=== PATIENT | female | born 1990 | race Caucasian/White ===

== ENCOUNTER 2020-10-30 08:09 | Emergency (ER) | payer BC ==
[2020-10-30 08:18] VITALS: BP 88/54; PULSE 65; RESP 18; TEMP 97.9
[2020-10-30] MEDS ORDERED: SODIUM CHLORIDE 0.9% 1,000 ML IV STA (08:24)
[2020-10-30] MEDS ORDERED: FAMOTIDINE 20 MG/2 ML VIAL IV STA (08:25)
[2020-10-30] MEDS ORDERED: KETOROLAC 15 MG/ML 1 ML VIAL IVP STA (08:25)
--- NOTE | 2020-10-30 08:29 | ED ---
General Adult HPI - General Chief complaint: Abdominal Pain Stated complaint: Abd Pain Time Seen by Provider: 10/30/20 08:10 Source: patient, EMS, RN notes reviewed Mode of arrival: EMS Limitations: no limitations - History of Present Illness Initial comments: Patient is a pleasant 30-year-old female presenting to the emergency Department with complaints of abdominal discomfort. Onset of symptoms was a couple of years ago. Patient states she gets these symptoms approximately every 3 weeks and correlates with her menses. Patient is currently on her menses. Patient states symptoms started and 2019 when she had a large cyst removed from her fallopian tube. Patient states symptoms started today at 6 AM. Patient woke and was sweaty and nauseated, similar to previous symptoms. Patient has had multiple previous urgency Department visits. Patient was admitted one time recently with concerns for gallbladder with plan of having gallbladder removed however there was not availability and patient went home. Patient has also seen [facility] and primary care physician for this. Patient has had multiple previous studies including pelvic exams, ultrasounds and CTs, several of each. Patient states symptoms have improved following Tylenol and Zofran by EMS. Discomfort is mostly right upper abdomen. - Related Data Allergies Allergy/AdvReac Type Severity Reaction Status Date / Time metoclopramide [From Reglan] AdvReac Confusion Verified 10/30/20 08:20 Review of Systems ROS Statement: Those systems with pertinent positive or pertinent negative responses have been documented in the HPI. ROS Other: All systems not noted in ROS Statement are negative. Constitutional: Denies: fever Eyes: Denies: eye pain ENT: Denies: ear pain Respiratory: Denies: cough Cardiovascular: Denies: chest pain Endocrine: Denies: fatigue Gastrointestinal: Reports: as per HPI, abdominal pain, nausea Genitourinary: Reports: as per HPI. 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 Smoking Status: Current every day smoker Past Alcohol Use History: None Reported Past Drug Use History: Marijuana General Exam Limitations: no limitations General appearance: alert, in no apparent distress Head exam: Present: normocephalic Eye exam: Present: normal appearance Neck exam: Present: normal inspection Respiratory exam: Present: normal lung sounds bilaterally Cardiovascular Exam: Present: regular rate, normal rhythm Expanded Peripheral pulses: 2+: Posterior Tibialis (R), Posterior Tibialis (L) GI/Abdominal exam: Present: soft, tenderness (Mild tenderness between the right upper quadrant and epigastrium. There is minimal diffuse tenderness ), normal bowel sounds. Absent: distended, guarding, rebound, rigid, pulsatile mass Extremities exam: Present: normal inspection Back exam: Present: normal inspection Neurological exam: Present: alert Psychiatric exam: Present: normal affect, normal mood Skin exam: Present: normal color Course Vital Signs 10/30/20 08:11 Temperature 97.9 F Pulse Rate 65 Respiratory 18 Rate Blood Pressure 88/54 O2 Sat by Pulse 99 Oximetry Medical Decision Making - Medical Decision Making Patient reevaluated and is requesting discharge home. Patient states she is feeling much better. Patient updated on results and need for follow-up. Patient adds she was recently diagnosed with hepatitis C and is undergoing evaluation for treatment of that. - Lab Data Result diagrams: 10/30/20 08:28 10/30/20 08:28 Lab Results 10/30/20 10/30/20 10/30/20 Range/Units 08:28 08:28 08:28 WBC 3.8 (3.8-10.6) k/uL RBC 3.88 (3.80-5.40) m/uL Hgb 11.9 (11.4-16.0) gm/dL Hct 34.3 (34.0-46.0) % MCV 88.4 (80.0-100.0) fL MCH 30.6 (25.0-35.0) pg MCHC 34.7 (31.0-37.0) g/dL RDW 13.0 (11.5-15.5) % Plt Count 98 L (150-450) k/uL MPV 8.3 Neutrophils % 65 % Lymphocytes % 24 % Monocytes % 7 % Eosinophils % 2 % Basophils % 1 % Neutrophils # 2.5 (1.3-7.7) k/uL Lymphocytes # 0.9 L (1.0-4.8) k/uL Monocytes # 0.3 (0-1.0) k/uL Eosinophils # 0.1 (0-0.7) k/uL Basophils # 0.0 (0-0.2) k/uL Manual Slide Review Performed RBC Morphology Normal PT (9.0-12.0) sec INR (<1.2) APTT (22.0-30.0) sec Sodium 140 (137-145) mmol/L Potassium 3.8 (3.5-5.1) mmol/L Chloride 106 (98-107) mmol/L Carbon Dioxide 32 H (22-30) mmol/L Anion Gap 2 mmol/L BUN 15 (7-17) mg/dL Creatinine 0.45 L (0.52-1.04) mg/dL Est GFR (CKD-EPI)AfAm >90 (>60 ml/min/1.73 sqM) Est GFR (CKD-EPI)NonAf >90 (>60 ml/min/1.73 sqM) Glucose 110 H (74-99) mg/dL Calcium 8.3 L (8.4-10.2) mg/dL Total Bilirubin 0.2 (0.2-1.3) mg/dL AST 85 H (14-36) U/L ALT 141 H (4-34) U/L Alkaline Phosphatase 51 (38-126) U/L Total Protein 5.9 L (6.3-8.2) g/dL Albumin 3.3 L (3.5-5.0) g/dL Amylase 81 (30-110) U/L Lipase 147 (23-300) U/L HCG, Quant <2.4 mIU/mL Urine Color Yellow Urine Appearance Clear (Clear) Urine pH 6.5 (5.0-8.0) Ur Specific [place] 1.018 (1.001-1.035) Urine Protein Trace H (Negative) Urine Glucose (UA) Negative (Negative) Urine Ketones Negative (Negative) Urine Blood Large H (Negative) Urine Nitrite Negative (Negative) Urine Bilirubin Negative (Negative) Urine Urobilinogen 2.0 (<2.0) mg/dL Ur Leukocyte Esterase Negative (Negative) Urine RBC >182 H (0-5) /hpf Urine WBC 3 (0-5) /hpf Ur Squamous Epith Cells 2 (0-4) /hpf Urine Bacteria Rare H (None) /hpf Urine Mucus Rare H (None) /hpf 10/30/ Range/Units 08:28 WBC (3.8-10.6) k/uL RBC (3.80-5.40) m/uL Hgb (11.4-16.0) gm/dL Hct (34.0-46.0) % MCV (80.0-100.0) fL MCH (25.0-35.0) pg MCHC (31.0-37.0) g/dL RDW (11.5-15.5) % Plt Count (150-450) k/uL MPV Neutrophils % % Lymphocytes % % Monocytes % % Eosinophils % % Basophils % % Neutrophils # (1.3-7.7) k/uL Lymphocytes # (1.0-4.8) k/uL Monocytes # (0-1.0) k/uL Eosinophils # (0-0.7) k/uL Basophils # (0-0.2) k/uL Manual Slide Review RBC Morphology PT 11.1 (9.0-12.0) sec INR 1.0 (<1.2) APTT 24.1 (22.0-30.0) sec Sodium (137-145) mmol/L Potassium (3.5-5.1) mmol/L Chloride (98-107) mmol/L Carbon Dioxide (22-30) mmol/L Anion Gap mmol/L BUN (7-17) mg/dL Creatinine (0.52-1.04) mg/dL Est GFR (CKD-EPI)AfAm (>60 ml/min/1.73 sqM) Est GFR (CKD-EPI)NonAf (>60 ml/min/1.73 sqM) Glucose (74-99) mg/dL Calcium (8.4-10.2) mg/dL Total Bilirubin (0.2-1.3) mg/dL AST (14-36) U/L ALT (4-34) U/L Alkaline Phosphatase (38-126) U/L Total Protein (6.3-8.2) g/dL Albumin (3.5-5.0) g/dL Amylase (30-110) U/L Lipase (23-300) U/L HCG, Quant mIU/mL Urine Color Urine Appearance (Clear) Urine pH (5.0-8.0) Ur Specific [place] (1.001-1.035) Urine Protein (Negative) Urine Glucose (UA) (Negative) Urine Ketones (Negative) Urine Blood (Negative) Urine Nitrite (Negative) Urine Bilirubin (Negative) Urine Urobilinogen (<2.0) mg/dL Ur Leukocyte Esterase (Negative) Urine RBC (0-5) /hpf Urine WBC (0-5) /hpf Ur Squamous Epith Cells (0-4) /hpf Urine Bacteria (None) /hpf Urine Mucus (None) /hpf - Radiology Data Radiology results: report reviewed (Transvaginal ultrasound shows cystic lesion right ovary. Fluid in the cul-de-sac and left adnexal. Left ovary obscured by bowel content. Gallbladder ultrasound shows extrarenal pelvis versus mild pyelonephritis right knee.), image reviewed (Abdominal x-ray reveals nonobstructive pattern) Disposition Clinical Impression: Abdominal pain Disposition: HOME SELF-CARE Condition: Stable Instructions (If sedation given, give patient instructions): Abdominal Pain (ED) Additional Instructions: Please follow-up with your primary care physician as well as other doctors in the beginning of the week. Return for increased pain, vomiting, fever, worsening or change in symptoms or other concerns. Is patient prescribed a controlled substance at d/c from ED?: No Referrals: Nonstaff,Physician [Primary Care Provider] - 1-2 days Time of Disposition: 11:32
[2020-10-30 08:37] LABS: Basophils % (A) 1 %; Eosinophils # (A) 0.1 k/uL (0-0.7); Eosinophils % (A) 2 %; HCT 34.3 % (34.0-46.0); HGB 11.9 gm/dL (11.4-16.0); Lymphocytes # (A) 0.9 k/uL (1.0-4.8); Lymphocytes % (A) 24 %; MCH 30.6 pg (25.0-35.0); MCHC 34.7 g/dL (31.0-37.0); MCV 88.4 fL (80.0-100.0); Mean Platelet Volume 8.3; Monocytes # (A) 0.3 k/uL (0-1.0); Monocytes % (A) 7 %; Neutrophils # (A) 2.5 k/uL (1.3-7.7); Neutrophils % (A) 65 %; RBC 3.88 m/uL (3.80-5.40); WBC 3.8 k/uL (3.8-10.6)
[2020-10-30 08:47] LABS: Appearance,Urine Clear (Clear); Bacteria,Urine Rare /hpf; Bilirubin,Urine Negative (Negative); Blood,Urine Large (Negative); Color,Urine Yellow; Glucose,Urine (UA) Negative (Negative); Ketones,Urine Negative (Negative); Leukocyte Esterase,Urine Negative (Negative); Mucus,Urine Rare /hpf; Nitrite,Urine Negative (Negative); PH, Urine 6.5 (5.0-8.0); Protein,Urine Trace (Negative); RBC,Urine >182 /hpf (0-5); Specific Gravity,Urine 1.018 (1.001-1.035); Squamous Epithelial Cell,Urine 2 /hpf (0-4); WBC,Urine 3 /hpf (0-5)
[2020-10-30 08:48] LABS: Partial Thromboplastin Time 24.1 sec (22.0-30.0); Prothrombin Time 11.1 sec (9.0-12.0)
[2020-10-30 08:49] LABS: ALT 141 U/L (4-34); AST 85 U/L (14-36); African American GFR (CKD) >90 (>60 ml/min/1.73 sqM); Albumin 3.3 g/dL (3.5-5.0); Alkaline Phosphatase 51 U/L (38-126); Amylase 81 U/L (30-110); Anion Gap 2 mmol/L; Blood Urea Nitrogen 15 mg/dL (7-17); Calcium 8.3 mg/dL (8.4-10.2); Carbon Dioxide 32 mmol/L (22-30); Chloride 106 mmol/L (98-107); Glucose 110 mg/dL (74-99); Lipase 147 U/L (23-300); Non-African American GFR(CKD) >90 (>60 ml/min/1.73 sqM); Potassium 3.8 mmol/L (3.5-5.1); Sodium 140 mmol/L (137-145); Total Bilirubin 0.2 mg/dL (0.2-1.3); Total Protein 5.9 g/dL (6.3-8.2)
[2020-10-30 09:05] LABS: HCG,Quantitative Serum <2.4 mIU/mL
[2020-10-30 09:18] LABS: Platelet Count 98 k/uL (150-450)
--- NOTE | 2020-10-30 10:01 | US ---
EXAMINATION TYPE: US gallbladder DATE OF EXAM: 10/30/2020 COMPARISON: NONE CLINICAL HISTORY: pain. Pain EXAM MEASUREMENTS: Liver Length: 17.9 cm Gallbladder Wall: 0.1 cm CBD: 0.4 cm Right Kidney: 13.4 x 5.8 x 5.1 cm Pancreas: Main pancreatic duct = 3.1 mm Liver: wnl Gallbladder: wnl Evidence for sonographic Vargas's sign: neg CBD: wnl Right Kidney: Appears enlarged in size. Median anechoic lesion at hilum= 4.1 x 1.3 cm, possible dil ated renal pelvis IMPRESSION: Extrarenal pelvis versus mild hydronephrosis right kidney. Parapelvic cyst additional possibility.
--- NOTE | 2020-10-30 10:05 | US ---
EXAMINATION TYPE: US transvaginal DATE OF EXAM: 10/30/2020 COMPARISON: NONE CLINICAL HISTORY: pain. Patient states she has Mirena. Patient states she never used to have her per iod because of her IUD but now she does. Hx csection x 3 TECHNIQUE: Transvaginal (TV). Date of LMP: 10/26/2020, EXAM MEASUREMENTS: Uterus: 9.2 x 5.3 x 2.6 cm Right Ovary: 3.3 x 2.6 x 2.5 cm 1. Uterus: Anteverted wnl 2. Endometrium: Unable to visualize and measure. IUD not seen within endometrial canal 3. Right Ovary: Cystic lesion = 2.2 x 2.2 x 1.7 cm. Follicles seen. 4. Left Ovary: Obscured by overlying bowel gas Spectral, color and waveform doppler imaging shows good arterial and venous flow within the right o vary; there is no evidence for ovarian torsion. 5. Bilateral Adnexa: free fluid seen in left adnexa/cul de sac 6. Posterior cul-de-sac: see above Cervix- fluid visualized within cervical canal IMPRESSION: 1. Cystic lesion right ovary. 2. Free fluid within the cul-de-sac and left adnexal region. Left ovary is obscured by bowel content. 3. IUD is not identified within the endometrial canal.
--- NOTE | 2020-10-30 10:05 | XR ---
EXAMINATION TYPE: XR KUB DATE OF EXAM: 10/30/2020 COMPARISON: NONE HISTORY: Pain TECHNIQUE: Single supine KUB image of the abdomen is obtained FINDINGS: Small bowel demonstrates no evidence for dilatation or air fluid levels. Gas and fecal material is seen in non-distended colon. No convincing evidence for pneumoperitoneum. No unusual calcifications. The lung bases are clear. The osseous structures are intact. IMPRESSION: 1. Overall nonobstructive bowel gas pattern.
[2020-10-30] MEDS ORDERED: ONDANSETRON 4 MG/2 ML VIAL IVP STA (10:29)
== END 2020-10-30 13:19 | disposition home or self-care (01) ==
LOC: EC 08:09
DX: R10.9 Unspecified abdominal pain (principal); F17.200 Nicotine dependence, unspecified, uncomplicated; F12.90 Cannabis use, unspecified, uncomplicated; Z90.79 Acquired absence of other genital organ(s)
CPT/HCPCS: 36415; 80053; 82150; 83690; 85025; 85610; 85730; 81001; 84702; 74018; 93976; 76830; 76705; 96374; 96375 ×2; 99285; J2405; J1885